=== PATIENT | male | born 1990 | race Two or more races ===

== ENCOUNTER 2023-07-01 19:13 | Inpatient (IN) | payer OTHER ==
[2023-07-01 20:14] VITALS: BMI 18.5
[2023-07-02] MEDS ORDERED: MAGNESIUM HYDROX 2400MG/30ML ORAL SUSPENSION 30 ML CUP PO PRN (01:06)
[2023-07-02] MEDS ORDERED: LOPERAMIDE HCL 2 MG CAPSULE PO PRN (01:06)
[2023-07-02] MEDS ORDERED: NALOXONE HCL (KLOXXADO) 8 MG SPRAY NS PRN (01:06)
[2023-07-02] MEDS ORDERED: ONDANSETRON *ODT* 4 MG TABLET SL PRN (01:06)
[2023-07-02] MEDS ORDERED: guaiFENesin 600 MG TABLET.ER (FP) PO PRN (01:06)
[2023-07-02] MEDS ORDERED: MAG HYDROX/AL HYDROX/SIMETH 30 ML UNIT-DOSE CUP PO PRN (01:06)
[2023-07-02] MEDS ORDERED: BISMUTH SUBSALICYLATE 524 MG/30 ML PO PRN (01:06)
[2023-07-02] MEDS ORDERED: hydrOXYzine PAMOATE 25 MG CAPSULE (FP) PO PRN (01:06)
[2023-07-02] MEDS ORDERED: BENZOCAINE/MENTHOL (CHLORASEPTIC ) LOZENGE MM PRN (01:06)
[2023-07-02] MEDS ORDERED: POLYETHYLENE GLYCOL (HEALTHYLAX) 3350 17 GM PACKET PO PRN (01:06)
[2023-07-02] MEDS ORDERED: NALOXONE HCL 0.4 MG/ML VIAL IM PRN (01:06)
[2023-07-02] MEDS ORDERED: IBUPROFEN 400 MG TABLET (FP) PO PRN (01:06)
[2023-07-02] MEDS ORDERED: DICYCLOMINE HCL 10 MG CAPSULE PO PRN (01:06)
[2023-07-02] MEDS ORDERED: BENZONATATE 200 MG CAPSULE PO PRN (01:06)
[2023-07-02] MEDS ORDERED: chlordiazePOXIDE HCL 25 MG CAPSULE PO PRN (01:09)
[2023-07-02] MEDS: levETIRAcetam 500 MG TABLET (FP) PO ONE ×2 (02:32→02:36)
[2023-07-02] MEDS: ACETAMINOPHEN 325 MG TABLET (FP) PO PRN (02:37)
[2023-07-02] MEDS: METHOCARBAMOL 500 MG TABLET PO PRN (02:37)
[2023-07-02] MEDS: cloNIDine HCL 0.1 MG TABLET PO ONE (02:38)
[2023-07-02] MEDS: chlordiazePOXIDE HCL 25 MG CAPSULE PO SCH (06:00)
[2023-07-02] MEDS: PRENATAL VITAMINS W/ FOLIC ACID TABLET (FP) PO SCH (10:17)
[2023-07-02] MEDS: levETIRAcetam 500 MG TABLET (FP) PO SCH (13:19)
[2023-07-02] MEDS: cloNIDine HCL 0.1 MG TABLET PO PRN (17:34)
[2023-07-02] MEDS: IBUPROFEN 600 MG TABLET (FP) PO PRN (22:04)
[2023-07-02] MEDS: THIAMINE 100 MG TABLET PO SCH (22:55)
[2023-07-02] MEDS: MELATONIN 5 MG TABLETS PO SCH (22:57)
[2023-07-03] MEDS ORDERED: chlordiazePOXIDE HCL 25 MG CAPSULE PO SCH (05:00)
[2023-07-03 11:47] LABS: HEMATOCRIT 32.9 % (35.4-49); HEMOGLOBIN 10.7 GM/dL (11.7-16.9); MCH 27.1 pg (25.7-33.7); MCHC 32.5 g/dl (32.0-35.9); MEAN CELL VOLUME 83.5 fl (80-96); MEAN PLT VOLUME 8.3 fl (7.5-11.1); PLATELET COUNT 159 10^3/uL (134-434); RBC 3.94 M/mm3 (4.00-5.60); RDW 18.4 % (11.9-15.9); WHITE BLOOD COUNT 5.5 K/mm3 (4.0-10.0)
[2023-07-03 11:49] LABS: POTASSIUM 3.7 mmol/L (3.5-5.1)
[2023-07-03 11:51] LABS: CALCIUM 9.3 mg/dL (8.5-10.1)
[2023-07-03 11:52] LABS: ALBUMIN 2.4 g/dl (3.4-5.0)
[2023-07-03 11:55] LABS: CREATININE 0.6 mg/dL (0.55-1.3)
[2023-07-03 11:57] LABS: BILIRUBIN,TOTAL 0.6 mg/dL (0.2-1); TOT PROT 6.4 g/dl (6.4-8.2)
[2023-07-03] MEDS ORDERED: LORazepam 1 MG TABLET PO PRN (13:32)
[2023-07-03] MEDS: LORazepam 2 MG TABLET PO SCH (17:23)
[2023-07-04] MEDS ORDERED: chlordiazePOXIDE HCL 10 MG CAPSULE PO PRN
[2023-07-04] MEDS ORDERED: chlordiazePOXIDE HCL 10 MG CAPSULE PO SCH (05:00)
[2023-07-04] MEDS: LORazepam 1 MG TABLET PO SCH (05:55)
[2023-07-04] MEDS ORDERED: levETIRAcetam 500 MG TABLET (FP) PO SCH ×2 (10:00→22:00)
[2023-07-04] MEDS: amLODIPine BESYLATE 10 MG TABLET (FP) PO SCH (13:33)
[2023-07-04] MEDS: LOSARTAN POTASSIUM 50 MG TABLET PO ONE (19:13)
[2023-07-04] MEDS: HYDROCHLOROTHIAZIDE 12.5 MG CAPSULE (FP) PO ONE (19:13)
[2023-07-04] MEDS: levETIRAcetam 500 MG TABLET (FP) PO SCH (22:29)
[2023-07-04] MEDS: TOLNAFTATE 1% CREAM 15 GM TUBE TP SCH (22:29)
[2023-07-05] MEDS ORDERED: chlordiazePOXIDE HCL 10 MG CAPSULE PO SCH (05:00)
[2023-07-05] MEDS: LORazepam 0.5 MG TABLET PO SCH (05:48)
[2023-07-05 09:03] VITALS: RESP 18
[2023-07-05] MEDS: LOSARTAN 50MG/HCTZ 12.5MG 1 TAB PO SCH (10:46)
[2023-07-05 12:48] VITALS: BP 111/64; PULSE 90; TEMP 97.3
[2023-07-06] MEDS ORDERED: LORazepam 0.5 MG TABLET PO PRN
[2023-07-06] MEDS ORDERED: LORazepam 0.5 MG TABLET PO ONE (05:00)
[2023-07-06] MEDS ORDERED: chlordiazePOXIDE HCL 10 MG CAPSULE PO ONE (05:00)
[2023-07-07] MEDS ORDERED: LORazepam 0.5 MG TABLET PO ONE (05:00)
== END 2023-07-05 15:33 | disposition left against medical advice (07) | DRG 770 ==
LOC: YASAS 19:13 → Y6N 23:53 → Y3N 07-02 01:39
PROVIDERS: ADMIT Allergy & Immunology; ATTEND Surgery
PROC: HZ2ZZZZ Detoxification Services for Substance Abuse Treatment (ICD-10-PCS; principal; 2023-07-01)
DX: F10.230 Alcohol dependence with withdrawal, uncomplicated (principal); R56.1 Post traumatic seizures; I10 Essential (primary) hypertension; B35.3 Tinea pedis; Z87.891 Personal history of nicotine dependence; Z99.89 Dependence on other enabling machines and devices; R55 Syncope and collapse; S09.90XA Unspecified injury of head, initial encounter; W19.XXXA Unspecified fall, initial encounter; Y92.230 Patient room in hospital as the place of occurrence of the external cause
CPT/HCPCS: 36415; 80053; 80177; 80307; 82962; 83036; 85027; 86780; 93005; 93010

== ENCOUNTER 2023-07-02 22:37 | Emergency (ER) | payer OTHER ==
[2023-07-02 22:49] VITALS: BP 134/86; PULSE 85; RESP 16; TEMP 97.8; BMI 20.6
[2023-07-03] MEDS: chlordiazePOXIDE HCL 25 MG CAPSULE PO ONE (01:26)
== END 2023-07-03 01:32 | disposition home or self-care (01) ==
LOC: JER 22:37
DX: R55 Syncope and collapse (principal); R53.1 Weakness; W19.XXXA Unspecified fall, initial encounter
CPT/HCPCS: 70450-TC; 93005; 93010; 99284-25

== ENCOUNTER 2023-07-27 11:46 | Inpatient (IN) | payer OTHER ==
[2023-07-27 12:40] VITALS: BMI 17.9
[2023-07-27] MEDS ORDERED: levETIRAcetam 500 MG TABLET (FP) PO SCH (13:00)
[2023-07-27] MEDS ORDERED: BENZONATATE 200 MG CAPSULE PO PRN (13:01)
[2023-07-27] MEDS ORDERED: POLYETHYLENE GLYCOL (HEALTHYLAX) 3350 17 GM PACKET PO PRN (13:01)
[2023-07-27] MEDS ORDERED: DICYCLOMINE HCL 10 MG CAPSULE PO PRN (13:01)
[2023-07-27] MEDS ORDERED: LOPERAMIDE HCL 2 MG CAPSULE PO PRN (13:01)
[2023-07-27] MEDS ORDERED: BENZOCAINE/MENTHOL (CHLORASEPTIC ) LOZENGE MM PRN (13:01)
[2023-07-27] MEDS ORDERED: MAG HYDROX/AL HYDROX/SIMETH 30 ML UNIT-DOSE CUP PO PRN (13:01)
[2023-07-27] MEDS ORDERED: ONDANSETRON *ODT* 4 MG TABLET SL PRN (13:01)
[2023-07-27] MEDS ORDERED: MAGNESIUM HYDROX 2400MG/30ML ORAL SUSPENSION 30 ML CUP PO PRN (13:01)
[2023-07-27] MEDS ORDERED: guaiFENesin 600 MG TABLET.ER (FP) PO PRN (13:01)
[2023-07-27] MEDS ORDERED: BISMUTH SUBSALICYLATE 524 MG/30 ML PO PRN (13:01)
[2023-07-27] MEDS ORDERED: levETIRAcetam 500 MG TABLET (FP) PO ONE ×2 (14:12→14:15)
[2023-07-27] MEDS ORDERED: chlordiazePOXIDE HCL 25 MG CAPSULE ONE (14:12)
[2023-07-27] MEDS: levETIRAcetam 500 MG TABLET (FP) PO SCH (14:14)
[2023-07-27] MEDS: chlordiazePOXIDE HCL 25 MG CAPSULE PO ONE (14:15)
[2023-07-27] MEDS ORDERED: ACETAMINOPHEN 325 MG TABLET (FP) ONE (14:16)
[2023-07-27] MEDS: ACETAMINOPHEN 325 MG TABLET (FP) PO PRN (14:16)
[2023-07-27] MEDS: BACITRACIN 0.9 GM PACKET TP SCH (14:41)
[2023-07-27] MEDS: LOSARTAN 50MG/HCTZ 12.5MG 1 TAB PO SCH (15:29)
[2023-07-27] MEDS: chlordiazePOXIDE HCL 25 MG CAPSULE PO SCH (17:55)
[2023-07-27] MEDS: THIAMINE 100 MG TABLET PO SCH (22:13)
[2023-07-27] MEDS: MELATONIN 5 MG TABLETS PO SCH (22:13)
[2023-07-28] MEDS: amLODIPine BESYLATE 10 MG TABLET (FP) PO SCH (10:38)
[2023-07-28] MEDS: PRENATAL VITAMINS W/ FOLIC ACID TABLET (FP) PO SCH (10:38)
[2023-07-28] MEDS: NICOTINE POLACRILEX 2 MG GUM BUC PRN (14:42)
[2023-07-28] MEDS: IBUPROFEN 400 MG TABLET (FP) PO PRN (17:58)
[2023-07-29] MEDS: chlordiazePOXIDE HCL 25 MG CAPSULE PO SCH (05:03)
[2023-07-29] MEDS: chlordiazePOXIDE HCL 25 MG CAPSULE PO PRN (18:25)
[2023-07-29] MEDS: METHOCARBAMOL 500 MG TABLET PO PRN (22:39)
[2023-07-30] MEDS ORDERED: chlordiazePOXIDE HCL 10 MG CAPSULE PO PRN
[2023-07-30] MEDS: chlordiazePOXIDE HCL 10 MG CAPSULE PO SCH (05:55)
[2023-07-30 12:41] VITALS: BP 116/71; PULSE 99; RESP 18; TEMP 97.7
[2023-07-31] MEDS ORDERED: chlordiazePOXIDE HCL 10 MG CAPSULE PO SCH (05:00)
[2023-08-01] MEDS ORDERED: chlordiazePOXIDE HCL 10 MG CAPSULE PO ONE (05:00)
== END 2023-07-30 16:30 | disposition home or self-care (01) | DRG 775 ==
LOC: YASAS 11:46 → Y6N 13:12
PROVIDERS: ADMIT Allergy & Immunology; ATTEND Surgery
PROC: HZ2ZZZZ Detoxification Services for Substance Abuse Treatment (ICD-10-PCS; principal; 2023-07-27)
DX: F10.230 Alcohol dependence with withdrawal, uncomplicated (principal); F17.210 Nicotine dependence, cigarettes, uncomplicated; G40.909 Epilepsy, unspecified, not intractable, without status epilepticus; I10 Essential (primary) hypertension; B35.3 Tinea pedis; R26.89 Other abnormalities of gait and mobility; Z99.89 Dependence on other enabling machines and devices; Z59.00 Homelessness unspecified
CPT/HCPCS: 80305; 80307

== ENCOUNTER 2023-09-01 12:01 | Inpatient (IN) | payer OTHER ==
[2023-09-01] MEDS ORDERED: BENZONATATE 200 MG CAPSULE PO PRN (13:18)
[2023-09-01] MEDS ORDERED: METHOCARBAMOL 500 MG TABLET PO PRN (13:18)
[2023-09-01] MEDS ORDERED: P-EPHED 60MG/TRIPROLIDI 2.5MG TABLET PO PRN (13:18)
[2023-09-01] MEDS ORDERED: LOPERAMIDE HCL 2 MG CAPSULE PO PRN (13:18)
[2023-09-01] MEDS ORDERED: MAG HYDROX/AL HYDROX/SIMETH 30 ML UNIT-DOSE CUP PO PRN (13:18)
[2023-09-01] MEDS ORDERED: BENZOCAINE/MENTHOL (CHLORASEPTIC ) LOZENGE MM PRN (13:18)
[2023-09-01] MEDS ORDERED: guaiFENesin 600 MG TABLET.ER (FP) PO PRN (13:18)
[2023-09-01] MEDS ORDERED: DICYCLOMINE HCL 10 MG CAPSULE PO PRN (13:18)
[2023-09-01] MEDS ORDERED: POLYETHYLENE GLYCOL (HEALTHYLAX) 3350 17 GM PACKET PO PRN (13:18)
[2023-09-01] MEDS ORDERED: hydrOXYzine PAMOATE 25 MG CAPSULE (FP) PO PRN (13:18)
[2023-09-01] MEDS ORDERED: MAGNESIUM HYDROX 2400MG/30ML ORAL SUSPENSION 30 ML CUP PO PRN (13:18)
[2023-09-01] MEDS ORDERED: ONDANSETRON *ODT* 4 MG TABLET SL PRN (13:18)
[2023-09-01] MEDS ORDERED: BISMUTH SUBSALICYLATE 262 MG/15 ML BTL PO PRN (13:18)
[2023-09-01] MEDS ORDERED: IBUPROFEN 400 MG TABLET (FP) PO PRN (13:18)
[2023-09-01] MEDS ORDERED: levETIRAcetam 500 MG TABLET (FP) PO ONE (14:32)
[2023-09-01] MEDS: levETIRAcetam 500 MG TABLET (FP) PO SCH (14:35)
[2023-09-01] MEDS ORDERED: chlordiazePOXIDE HCL 25 MG CAPSULE ONE (15:11)
[2023-09-01] MEDS: chlordiazePOXIDE HCL 25 MG CAPSULE PO PRN (15:12)
[2023-09-01] MEDS: LOSARTAN 50MG/HCTZ 12.5MG 1 TAB PO ONE (16:21)
[2023-09-01] MEDS: LOSARTAN 50MG/HCTZ 12.5MG 1 TAB PO SCH (16:45)
[2023-09-01] MEDS: chlordiazePOXIDE HCL 25 MG CAPSULE PO SCH (17:19)
[2023-09-01] MEDS: ACETAMINOPHEN 325 MG TABLET (FP) PO PRN (18:31)
[2023-09-01] MEDS: THIAMINE 100 MG TABLET PO SCH (21:35)
[2023-09-01] MEDS: amLODIPine BESYLATE 10 MG TABLET (FP) PO SCH (21:35)
[2023-09-01] MEDS: NICOTINE POLACRILEX 2 MG GUM BUC PRN (21:35)
[2023-09-01] MEDS: TOLNAFTATE 1% CREAM 15 GM TUBE TP SCH (21:35)
[2023-09-01] MEDS: MELATONIN 5 MG TABLETS PO SCH (22:00)
[2023-09-02] MEDS: METOPROLOL TARTRATE 25 MG TABLET (FP) PO ONE
[2023-09-02] MEDS: PRENATAL VITAMINS W/ FOLIC ACID TABLET (FP) PO SCH (09:57)
[2023-09-03] MEDS: chlordiazePOXIDE HCL 25 MG CAPSULE PO SCH (05:22)
[2023-09-03] MEDS: IBUPROFEN 600 MG TABLET (FP) PO PRN (07:32)
[2023-09-03 08:51] VITALS: BP 118/64; PULSE 68; RESP 18; TEMP 98.1
[2023-09-04] MEDS ORDERED: chlordiazePOXIDE HCL 10 MG CAPSULE PO PRN
[2023-09-04] MEDS ORDERED: chlordiazePOXIDE HCL 10 MG CAPSULE PO SCH (05:00)
[2023-09-05] MEDS ORDERED: chlordiazePOXIDE HCL 10 MG CAPSULE PO SCH (05:00)
[2023-09-06] MEDS ORDERED: chlordiazePOXIDE HCL 10 MG CAPSULE PO ONE (05:00)
== END 2023-09-03 09:03 | disposition left against medical advice (07) | DRG 770 ==
LOC: YASAS 12:01 → Y6N 14:54
PROVIDERS: ADMIT Allergy & Immunology; ATTEND Surgery
PROC: HZ2ZZZZ Detoxification Services for Substance Abuse Treatment (ICD-10-PCS; principal; 2023-09-01)
DX: F10.230 Alcohol dependence with withdrawal, uncomplicated (principal); G40.909 Epilepsy, unspecified, not intractable, without status epilepticus; I10 Essential (primary) hypertension; Z87.891 Personal history of nicotine dependence; Z99.89 Dependence on other enabling machines and devices
CPT/HCPCS: 80305; 80307

== ENCOUNTER 2024-01-08 23:26 | Inpatient (IN) | payer OTHER ==
[2024-01-09 00:29] VITALS: BMI 21.5
[2024-01-09] MEDS ORDERED: BENZONATATE 200 MG CAPSULE PO PRN (02:11)
[2024-01-09] MEDS ORDERED: guaiFENesin 600 MG TABLET.ER (FP) PO PRN (02:11)
[2024-01-09] MEDS ORDERED: DICYCLOMINE HCL 10 MG CAPSULE PO PRN (02:11)
[2024-01-09] MEDS ORDERED: POLYETHYLENE GLYCOL (HEALTHYLAX) 3350 17 GM PACKET PO PRN (02:11)
[2024-01-09] MEDS ORDERED: BENZOCAINE/MENTHOL (CHLORASEPTIC ) LOZENGE MM PRN (02:11)
[2024-01-09] MEDS ORDERED: BISMUTH SUBSALICYLATE 524 MG/30 ML PO PRN (02:11)
[2024-01-09] MEDS ORDERED: ONDANSETRON *ODT* 4 MG TABLET SL PRN (02:11)
[2024-01-09] MEDS ORDERED: MAGNESIUM HYDROX 2400MG/30ML ORAL SUSPENSION 30 ML CUP PO PRN (02:11)
[2024-01-09] MEDS ORDERED: NALOXONE (NARCAN) HCL 4 MG/0.1 ML SPRAY NS PRN (02:11)
[2024-01-09] MEDS ORDERED: LOPERAMIDE HCL 2 MG CAPSULE PO PRN (02:11)
[2024-01-09] MEDS ORDERED: ACETAMINOPHEN 325 MG TABLET (FP) PO PRN (02:11)
[2024-01-09] MEDS ORDERED: MAG HYDROX/AL HYDROX/SIMETH 30 ML UNIT-DOSE CUP PO PRN (02:11)
[2024-01-09] MEDS ORDERED: NALOXONE (NYS OPIOID OVERDOSE PROGRAM) 4 MG/0.1 ML SPRAY NS PRN (02:11)
[2024-01-09] MEDS ORDERED: hydrOXYzine PAMOATE 25 MG CAPSULE (FP) PO PRN (02:11)
[2024-01-09] MEDS ORDERED: IBUPROFEN 400 MG TABLET (FP) PO PRN (02:11)
[2024-01-09] MEDS ORDERED: chlordiazePOXIDE HCL 25 MG CAPSULE PO PRN (02:15)
[2024-01-09] MEDS: cloNIDine HCL 0.1 MG TABLET PO ONE (02:43)
[2024-01-09] MEDS: chlordiazePOXIDE HCL 25 MG CAPSULE PO SCH (05:14)
[2024-01-09] MEDS: PERMETHRIN (NIX CREAM SCALP RINSE) 59 ML 1% BOTTLE TP ONE (08:58)
[2024-01-09] MEDS: amLODIPine BESYLATE 10 MG TABLET (FP) PO SCH (09:34)
[2024-01-09] MEDS: PRENATAL VITAMINS W/ FOLIC ACID TABLET (FP) PO SCH (09:34)
[2024-01-09] MEDS: levETIRAcetam 500 MG TABLET (FP) PO SCH ×2 (09:34→22:40)
[2024-01-09] MEDS: NICOTINE 21 MG/24 HOURS TOPICAL PATCH TD SCH (09:35)
[2024-01-09] MEDS: PERMETHRIN 5% TOPICAL CREAM 60 GM TUBE TP ONE (10:53)
[2024-01-09] MEDS ORDERED: levETIRAcetam 500 MG TABLET (FP) PO SCH (14:00)
[2024-01-09] MEDS: IBUPROFEN 600 MG TABLET (FP) PO PRN (17:33)
[2024-01-09] MEDS: METHOCARBAMOL 500 MG TABLET PO PRN (17:33)
[2024-01-09] MEDS: propRANOLol HCL 10 MG TABLET PO ONE (21:11)
[2024-01-09] MEDS: THIAMINE 100 MG TABLET PO SCH (22:38)
[2024-01-09] MEDS: MELATONIN 5 MG TABLETS PO SCH (22:38)
[2024-01-09] MEDS: NICOTINE POLACRILEX 2 MG GUM BUC PRN (23:38)
[2024-01-10] MEDS: chlordiazePOXIDE HCL 25 MG CAPSULE PO SCH (05:55)
[2024-01-10] MEDS: METOPROLOL TARTRATE 50 MG TABLET (FP) PO SCH (12:58)
[2024-01-10 13:24] LABS: HEMATOCRIT 38.6 % (35.4-49); HEMOGLOBIN 12.7 GM/dL (11.7-16.9); MCH 29.1 pg (25.7-33.7); MCHC 32.9 g/dl (32.0-35.9); MEAN CELL VOLUME 88.4 fl (80-96); MEAN PLT VOLUME 8.1 fl (7.5-11.1); PLATELET COUNT 188 10^3/uL (134-434); RBC 4.36 M/mm3 (4.00-5.60); RDW 16.5 % (11.9-15.9); WHITE BLOOD COUNT 7.8 K/mm3 (4.0-10.0)
[2024-01-10 13:40] LABS: POTASSIUM 3.3 mmol/L (3.5-5.1)
[2024-01-10 13:49] LABS: BLOOD UREA NITROGEN 7.4 mg/dL (7-18); CALCIUM 9.4 mg/dL (8.5-10.1)
[2024-01-10 13:52] LABS: CREATININE 0.6 mg/dL (0.55-1.3)
[2024-01-10 13:54] LABS: BILIRUBIN,TOTAL 0.4 mg/dL (0.2-1)
[2024-01-10 13:56] LABS: TOT PROT 6.1 g/dl (6.4-8.2)
[2024-01-10 21:53] VITALS: BP 123/87; PULSE 97; RESP 18; TEMP 98
[2024-01-11] MEDS ORDERED: chlordiazePOXIDE HCL 10 MG CAPSULE PO PRN
[2024-01-11] MEDS: chlordiazePOXIDE HCL 10 MG CAPSULE PO SCH (05:30)
[2024-01-11] MEDS: POTASSIUM CHLORIDE ORAL LIQUID 20 MEQ/15 ML PO ONE (13:44)
[2024-01-11] MEDS: LACTULOSE 20 GM/30 ML UDC (FOR ORAL USE ONLY) PO SCH (13:44)
[2024-01-11] MEDS ORDERED: chlordiazePOXIDE 5 MG CAPSULE PO SCH (17:00)
[2024-01-11] MEDS ORDERED: POTASSIUM CHLORIDE ORAL LIQUID 20 MEQ/15 ML PO ONE (17:30)
[2024-01-12] MEDS ORDERED: chlordiazePOXIDE 5 MG CAPSULE PO SCH (05:00)
[2024-01-12] MEDS ORDERED: chlordiazePOXIDE HCL 10 MG CAPSULE PO SCH (05:00)
[2024-01-13] MEDS ORDERED: chlordiazePOXIDE 5 MG CAPSULE PO ONE (05:00)
[2024-01-13] MEDS ORDERED: chlordiazePOXIDE HCL 10 MG CAPSULE PO ONE (05:00)
== END 2024-01-11 14:33 | disposition home or self-care (01) | DRG 775 ==
LOC: YASAS 23:26 → Y6N 01-09 02:17
PROVIDERS: ADMIT Allergy & Immunology; ATTEND Surgery
PROC: HZ2ZZZZ Detoxification Services for Substance Abuse Treatment (ICD-10-PCS; principal; 2024-01-09)
DX: F10.230 Alcohol dependence with withdrawal, uncomplicated (principal); F17.210 Nicotine dependence, cigarettes, uncomplicated; E72.20 Disorder of urea cycle metabolism, unspecified; E87.6 Hypokalemia; G40.909 Epilepsy, unspecified, not intractable, without status epilepticus; I10 Essential (primary) hypertension; B86 Scabies; R73.9 Hyperglycemia, unspecified; R74.01 Elevation of levels of liver transaminase levels; Z87.820 Personal history of traumatic brain injury; Z99.89 Dependence on other enabling machines and devices
CPT/HCPCS: 36415; 80053; 80305; 80307; 82140; 85027; 86780; 93005; 93010

== ENCOUNTER 2024-03-28 04:26 | Inpatient (IN) | payer OTHER ==
[2024-03-28 04:46] VITALS: BMI 21.2
[2024-03-28] MEDS ORDERED: NALOXONE (NARCAN) HCL 4 MG/0.1 ML SPRAY NS PRN (06:09)
[2024-03-28] MEDS ORDERED: MAGNESIUM HYDROX 2400MG/30ML ORAL SUSPENSION 30 ML CUP PO PRN (06:09)
[2024-03-28] MEDS ORDERED: LOPERAMIDE HCL 2 MG CAPSULE PO PRN (06:09)
[2024-03-28] MEDS ORDERED: DICYCLOMINE HCL 10 MG CAPSULE PO PRN (06:09)
[2024-03-28] MEDS ORDERED: IBUPROFEN 400 MG TABLET (FP) PO PRN (06:09)
[2024-03-28] MEDS ORDERED: BENZONATATE 200 MG CAPSULE PO PRN (06:09)
[2024-03-28] MEDS ORDERED: BENZOCAINE/MENTHOL (CHLORASEPTIC ) LOZENGE MM PRN (06:09)
[2024-03-28] MEDS ORDERED: guaiFENesin 600 MG TABLET.ER (FP) PO PRN (06:09)
[2024-03-28] MEDS ORDERED: IBUPROFEN 600 MG TABLET (FP) PO PRN (06:09)
[2024-03-28] MEDS ORDERED: MAG HYDROX/AL HYDROX/SIMETH 30 ML UNIT-DOSE CUP PO PRN (06:09)
[2024-03-28] MEDS ORDERED: ONDANSETRON *ODT* 4 MG TABLET SL PRN (06:09)
[2024-03-28] MEDS ORDERED: POLYETHYLENE GLYCOL (HEALTHYLAX) 3350 17 GM PACKET PO PRN (06:09)
[2024-03-28] MEDS ORDERED: diazePAM 5 MG TABLET ONE (06:48)
[2024-03-28] MEDS: POTASSIUM CHLORIDE ORAL LIQUID 20 MEQ/15 ML PO ONE (06:54)
[2024-03-28] MEDS: diazePAM 5 MG TABLET PO PRN (06:55)
[2024-03-28] MEDS: ACETAMINOPHEN 325 MG TABLET (FP) PO PRN (06:55)
[2024-03-28] MEDS: cloNIDine HCL 0.1 MG TABLET PO ONE ×2 (06:55→13:53)
[2024-03-28] MEDS: levETIRAcetam 500 MG TABLET (FP) PO ONE (08:45)
[2024-03-28] MEDS: NICOTINE 14 MG/24 HOURS TOPICAL PATCH TD SCH (09:32)
[2024-03-28] MEDS: amLODIPine BESYLATE 10 MG TABLET (FP) PO SCH (09:33)
[2024-03-28] MEDS: LACTULOSE 20 GM/30 ML UDC (FOR ORAL USE ONLY) PO SCH (09:33)
[2024-03-28] MEDS: PRENATAL VITAMINS W/ FOLIC ACID TABLET (FP) PO SCH (09:33)
[2024-03-28] MEDS: POTASSIUM CHLORIDE TABS 20 MEQ TABLET.ER (FP) PO SCH (09:33)
[2024-03-28] MEDS: NICOTINE POLACRILEX 2 MG GUM BUC PRN (09:37)
[2024-03-28] MEDS: diazePAM 5 MG TABLET PO SCH (11:03)
[2024-03-28] MEDS: BISMUTH SUBSALICYLATE 524 MG/30 ML PO PRN (11:05)
[2024-03-28] MEDS: METOPROLOL TARTRATE 50 MG TABLET (FP) PO ONE (17:06)
[2024-03-28] MEDS: THIAMINE 100 MG TABLET PO SCH (22:54)
[2024-03-28] MEDS: METHOCARBAMOL 500 MG TABLET PO PRN (22:54)
[2024-03-28] MEDS: MELATONIN 5 MG TABLETS PO SCH (22:54)
[2024-03-29] MEDS: levETIRAcetam 500 MG TABLET (FP) PO SCH (10:23)
[2024-03-30] MEDS: diazePAM 5 MG TABLET PO SCH (06:34)
[2024-03-30 09:24] LABS: POTASSIUM 3.9 mmol/L (3.5-5.1)
[2024-03-30 09:27] LABS: HEMOGLOBIN 11.1 GM/dL (11.7-16.9); MCH 27.4 pg (25.7-33.7); MCHC 31.8 g/dl (32.0-35.9); MEAN CELL VOLUME 86.2 fl (80-96); PLATELET COUNT 309 10^3/uL (134-434); RBC 4.06 M/mm3 (4.00-5.60); RDW 17.6 % (11.9-15.9); WHITE BLOOD COUNT 10.1 K/mm3 (4.0-10.0)
[2024-03-30 10:02] LABS: ALBUMIN 2.1 g/dl (3.4-5.0); BLOOD UREA NITROGEN 7.1 mg/dL (7-18)
[2024-03-30 10:06] LABS: CREATININE 0.8 mg/dL (0.55-1.3)
[2024-03-30 10:07] LABS: BILIRUBIN,TOTAL 0.6 mg/dL (0.2-1); TOT PROT 6.4 g/dl (6.4-8.2)
[2024-03-30 10:08] LABS: CALCIUM 9.2 mg/dL (8.5-10.1)
[2024-03-30] MEDS: hydrOXYzine PAMOATE 25 MG CAPSULE (FP) PO PRN (18:34)
[2024-03-30] MEDS: cloNIDine HCL 0.1 MG TABLET PO ONE (19:51)
[2024-03-31] MEDS: diazePAM 5 MG TABLET PO SCH (06:07)
[2024-03-31] MEDS ORDERED: LORazepam 2 MG/ML SDV VIAL ONE (09:48)
[2024-03-31] MEDS ORDERED: levETIRAcetam 500 MG TABLET (FP) PO ONE (09:57)
[2024-03-31] MEDS: LORazepam 2 MG/ML SDV VIAL IM ONE (11:33)
[2024-03-31] MEDS: levETIRAcetam 500 MG TABLET (FP) PO ONE (11:38)
[2024-03-31 22:53] VITALS: PULSE 93
[2024-03-31 23:09] VITALS: BP 127/82; RESP 18; TEMP 97.7
[2024-04-01] MEDS: diazePAM 5 MG TABLET PO ONE (06:12)
[2024-04-01] MEDS: levETIRAcetam 500 MG TABLET (FP) PO ONE (10:04)
[2024-04-01] MEDS: NALOXONE (NYS OPIOID OVERDOSE PROGRAM) 4 MG/0.1 ML SPRAY NS SCH (10:13)
== END 2024-04-01 11:23 | disposition home or self-care (01) | DRG 775 ==
LOC: YASAS 04:26 → Y3N 07:46
PROVIDERS: ADMIT Allergy & Immunology; ATTEND Allergy & Immunology
PROC: HZ2ZZZZ Detoxification Services for Substance Abuse Treatment (ICD-10-PCS; principal; 2024-03-28)
DX: F10.230 Alcohol dependence with withdrawal, uncomplicated (principal); F17.210 Nicotine dependence, cigarettes, uncomplicated; E72.20 Disorder of urea cycle metabolism, unspecified; R56.1 Post traumatic seizures; E87.6 Hypokalemia; I10 Essential (primary) hypertension
CPT/HCPCS: 36415; 71045-TC-FY; 80053; 80177; 80305; 80307; 82140; 82962; 84132; 85025; 85027; 93005; 93010; 99283-25

== ENCOUNTER 2024-05-14 10:40 | Inpatient (IN) | payer OTHER ==
[2024-05-14 11:01] VITALS: BMI 20.6
[2024-05-14] MEDS ORDERED: chlordiazePOXIDE HCL 25 MG CAPSULE PO PRN (11:05)
[2024-05-14] MEDS ORDERED: LOPERAMIDE HCL 2 MG CAPSULE PO PRN (11:11)
[2024-05-14] MEDS ORDERED: ONDANSETRON *ODT* 4 MG TABLET SL PRN (11:11)
[2024-05-14] MEDS ORDERED: POLYETHYLENE GLYCOL (HEALTHYLAX) 3350 17 GM PACKET PO PRN (11:11)
[2024-05-14] MEDS ORDERED: BENZONATATE 200 MG CAPSULE PO PRN (11:11)
[2024-05-14] MEDS ORDERED: BISMUTH SUBSALICYLATE 524 MG/30 ML PO PRN (11:11)
[2024-05-14] MEDS ORDERED: NALOXONE (NARCAN) HCL 4 MG/0.1 ML SPRAY NS PRN (11:11)
[2024-05-14] MEDS ORDERED: MAG HYDROX/AL HYDROX/SIMETH 30 ML UNIT-DOSE CUP PO PRN (11:11)
[2024-05-14] MEDS ORDERED: NICOTINE POLACRILEX 2 MG LOZENGE BC PRN (11:11)
[2024-05-14] MEDS ORDERED: IBUPROFEN 400 MG TABLET (FP) PO PRN (11:11)
[2024-05-14] MEDS ORDERED: BENZOCAINE/MENTHOL (CHLORASEPTIC ) LOZENGE MM PRN (11:11)
[2024-05-14] MEDS ORDERED: guaiFENesin 600 MG TABLET.ER (FP) PO PRN (11:11)
[2024-05-14] MEDS ORDERED: DICYCLOMINE HCL 10 MG CAPSULE PO PRN (11:11)
[2024-05-14] MEDS ORDERED: ACETAMINOPHEN 325 MG TABLET (FP) PO PRN (11:11)
[2024-05-14] MEDS: levETIRAcetam 500 MG TABLET (FP) PO SCH ×2 (11:57→12:10)
[2024-05-14] MEDS: amLODIPine BESYLATE 10 MG TABLET (FP) PO SCH (11:57)
[2024-05-14] MEDS ORDERED: levETIRAcetam 500 MG TABLET (FP) PO ONE ×2 (12:02→12:07)
[2024-05-14] MEDS ORDERED: chlordiazePOXIDE HCL 25 MG CAPSULE ONE (12:07)
[2024-05-14] MEDS: chlordiazePOXIDE HCL 25 MG CAPSULE PO SCH (12:09)
[2024-05-14] MEDS: THIAMINE 100 MG TABLET PO SCH (22:04)
[2024-05-14] MEDS: MELATONIN 5 MG TABLETS PO SCH (22:19)
[2024-05-15] MEDS: PRENATAL VITAMINS W/ FOLIC ACID TABLET (FP) PO SCH (10:19)
[2024-05-15] MEDS: HYDROCHLOROTHIAZIDE 25 MG TABLET (FP) PO SCH (10:19)
[2024-05-15] MEDS: METHOCARBAMOL 500 MG TABLET PO PRN (10:19)
[2024-05-15] MEDS: amLODIPine BESYLATE 5 MG TABLET (FP) PO SCH (10:19)
[2024-05-15] MEDS: MAGNESIUM OXIDE 400 MG TABLET (FP) PO SCH (10:55)
[2024-05-15 11:52] LABS: POTASSIUM 3.4 mmol/L (3.5-5.1)
[2024-05-15 11:53] LABS: CALCIUM 8.9 mg/dL (8.5-10.1)
[2024-05-15 11:54] LABS: ALBUMIN 2.2 g/dl (3.4-5.0); BLOOD UREA NITROGEN 4.9 mg/dL (7-18)
[2024-05-15 11:57] LABS: CREATININE 0.6 mg/dL (0.55-1.3)
[2024-05-15 11:59] LABS: BILIRUBIN,TOTAL 0.2 mg/dL (0.2-1); TOT PROT 6.5 g/dl (6.4-8.2)
[2024-05-15 17:18] LABS: HEMATOCRIT 33.1 % (35.4-49); MCHC 30.3 g/dl (32.0-35.9); MEAN CELL VOLUME 82.4 fl (80-96); MEAN PLT VOLUME 7.8 fl (7.5-11.1); PLATELET COUNT 300 10^3/uL (134-434); RBC 4.01 M/mm3 (4.00-5.60); RDW 19.3 % (11.9-15.9); WHITE BLOOD COUNT 6.4 K/mm3 (4.0-10.0)
[2024-05-16] MEDS: IBUPROFEN 600 MG TABLET (FP) PO PRN (01:55)
[2024-05-16] MEDS: chlordiazePOXIDE HCL 25 MG CAPSULE PO SCH (06:00)
[2024-05-16] MEDS: POTASSIUM CHLORIDE TABS 20 MEQ TABLET.ER (FP) PO ONE (14:50)
[2024-05-16] MEDS: POTASSIUM CHLORIDE ORAL LIQUID 20 MEQ/15 ML PO ONE ×2 (16:00→20:31)
[2024-05-16] MEDS: NICOTINE POLACRILEX 2 MG GUM BUC PRN (22:52)
[2024-05-17] MEDS ORDERED: chlordiazePOXIDE HCL 10 MG CAPSULE PO PRN
[2024-05-17] MEDS: MAGNESIUM HYDROX 2400MG/30ML ORAL SUSPENSION 30 ML CUP PO PRN (02:38)
[2024-05-17] MEDS: chlordiazePOXIDE HCL 10 MG CAPSULE PO SCH (06:00)
[2024-05-17] MEDS ORDERED: POTASSIUM CHLORIDE TABS 20 MEQ TABLET.ER (FP) PO ONE (12:00)
[2024-05-17] MEDS: POTASSIUM CHLORIDE ORAL LIQUID 20 MEQ/15 ML PO SCH (12:21)
[2024-05-18] MEDS: chlordiazePOXIDE HCL 10 MG CAPSULE PO SCH (05:00)
[2024-05-18] MEDS: LACTOBACILLUS ACIDOPHILUS 1 TABLET PO SCH (12:39)
[2024-05-18 17:29] VITALS: RESP 17
[2024-05-19] MEDS: chlordiazePOXIDE HCL 10 MG CAPSULE PO ONE (06:00)
[2024-05-19 06:32] VITALS: BP 121/89; PULSE 76; TEMP 98.2
== END 2024-05-19 10:00 | disposition home or self-care (01) | DRG 775 ==
LOC: YASAS 10:40 → Y6N 11:42
PROVIDERS: ADMIT Allergy & Immunology; ATTEND Allergy & Immunology
PROC: HZ2ZZZZ Detoxification Services for Substance Abuse Treatment (ICD-10-PCS; principal; 2024-05-14)
DX: F10.230 Alcohol dependence with withdrawal, uncomplicated (principal); F17.210 Nicotine dependence, cigarettes, uncomplicated; E87.6 Hypokalemia; I10 Essential (primary) hypertension; G40.909 Epilepsy, unspecified, not intractable, without status epilepticus; R19.7 Diarrhea, unspecified; Z87.820 Personal history of traumatic brain injury; S82.891D Other fracture of right lower leg, subsequent encounter for closed fracture with routine healing; X58.XXXD Exposure to other specified factors, subsequent encounter
CPT/HCPCS: 36415; 80053; 80305; 80307; 85027; 86780

== ENCOUNTER 2024-06-21 18:34 | Inpatient (IN) | payer OTHER ==
[2024-06-21 19:06] VITALS: BMI 21.1
[2024-06-21] MEDS ORDERED: POLYETHYLENE GLYCOL (HEALTHYLAX) 3350 17 GM PACKET PO PRN (21:19)
[2024-06-21] MEDS ORDERED: NALOXONE (NARCAN) HCL 4 MG/0.1 ML SPRAY NS PRN (21:19)
[2024-06-21] MEDS ORDERED: MAG HYDROX/AL HYDROX/SIMETH 30 ML UNIT-DOSE CUP PO PRN (21:19)
[2024-06-21] MEDS ORDERED: IBUPROFEN 400 MG TABLET (FP) PO PRN (21:19)
[2024-06-21] MEDS ORDERED: ONDANSETRON *ODT* 4 MG TABLET SL PRN (21:19)
[2024-06-21] MEDS ORDERED: DICYCLOMINE HCL 10 MG CAPSULE PO PRN (21:19)
[2024-06-21] MEDS ORDERED: BISMUTH SUBSALICYLATE 524 MG/30 ML PO PRN (21:19)
[2024-06-21] MEDS ORDERED: BENZONATATE 200 MG CAPSULE PO PRN (21:19)
[2024-06-21] MEDS ORDERED: BENZOCAINE/MENTHOL (CHLORASEPTIC ) LOZENGE MM PRN (21:19)
[2024-06-21] MEDS ORDERED: MAGNESIUM HYDROX 2400MG/30ML ORAL SUSPENSION 30 ML CUP PO PRN (21:19)
[2024-06-21] MEDS ORDERED: guaiFENesin 600 MG TABLET.ER (FP) PO PRN (21:19)
[2024-06-21] MEDS: MELATONIN 5 MG TABLETS PO SCH (22:16)
[2024-06-21] MEDS: THIAMINE 100 MG TABLET PO SCH (22:17)
[2024-06-21] MEDS ORDERED: cloNIDine HCL 0.1 MG TABLET ONE (23:39)
[2024-06-21] MEDS: cloNIDine HCL 0.1 MG TABLET PO ONE (23:46)
[2024-06-22 10:45] LABS: HEMATOCRIT 32.7 % (40.1-51.0); HEMOGLOBIN 9.9 g/dL (13.7-17.5); MCHC 30.3 g/dl (32.3-36.5); MEAN CELL VOLUME 80.5 fl (79.0-92.2); PLATELET COUNT 156 x10^3/uL (163-337)
[2024-06-22 10:46] LABS: CHLORIDE 102 mmol/L (98-107); POTASSIUM 3.4 mmol/L (3.5-5.1); SODIUM 137 mmol/L (136-145)
[2024-06-22] MEDS: PRENATAL VITAMINS W/ FOLIC ACID TABLET (FP) PO SCH (10:51)
[2024-06-22] MEDS: NICOTINE POLACRILEX 2 MG LOZENGE BC PRN (10:52)
[2024-06-22 10:55] LABS: CALCIUM 9.2 mg/dL (8.5-10.1)
[2024-06-22 10:56] LABS: ANION GAP 8 mmol/L (4-13); CO2 28 mmol/L (21-32); GLUCOSE,RANDOM 87 mg/dL (74-106)
[2024-06-22] MEDS: NICOTINE 14 MG/24 HOURS TOPICAL PATCH TD SCH (10:56)
[2024-06-22 10:59] LABS: CREATININE 0.4 mg/dL (0.55-1.3); SGOT/AST 28 U/L (15-37); SGPT/ALT 18 U/L (13-61)
[2024-06-22 11:00] LABS: BILIRUBIN,TOTAL 0.6 mg/dL (0.2-1); TOT PROT 5.7 g/dl (6.4-8.2)
[2024-06-22 11:02] LABS: ALK PHOS 106 U/L (45-117)
[2024-06-22] MEDS: POTASSIUM CHLORIDE ORAL LIQUID 20 MEQ/15 ML PO ONE (12:37)
[2024-06-22] MEDS: LOPERAMIDE HCL 2 MG CAPSULE PO PRN (14:15)
[2024-06-22] MEDS: NICOTINE POLACRILEX 2 MG GUM BUC PRN (15:27)
[2024-06-22] MEDS: hydrOXYzine PAMOATE 25 MG CAPSULE (FP) PO PRN (18:09)
[2024-06-22] MEDS: ACETAMINOPHEN 325 MG TABLET (FP) PO PRN (18:09)
[2024-06-22] MEDS: METHOCARBAMOL 500 MG TABLET PO PRN (22:43)
[2024-06-23] MEDS: IBUPROFEN 600 MG TABLET (FP) PO PRN (10:08)
[2024-06-23] MEDS: amLODIPine BESYLATE 5 MG TABLET (FP) PO SCH (11:12)
[2024-06-23 17:39] VITALS: RESP 16
[2024-06-23] MEDS: levETIRAcetam 500 MG TABLET (FP) PO SCH (22:41)
[2024-06-24 08:42] VITALS: BP 129/85; PULSE 90; TEMP 97.9
== END 2024-06-24 11:30 | disposition home or self-care (01) | DRG 775 ==
LOC: YASAS 18:34 → Y6N 22:58
PROVIDERS: ADMIT Allergy & Immunology; ATTEND Allergy & Immunology
PROC: HZ2ZZZZ Detoxification Services for Substance Abuse Treatment (ICD-10-PCS; principal; 2024-06-21)
DX: F10.20 Alcohol dependence, uncomplicated (principal); E87.6 Hypokalemia; I10 Essential (primary) hypertension; D64.9 Anemia, unspecified; R56.1 Post traumatic seizures; R26.89 Other abnormalities of gait and mobility
CPT/HCPCS: 36415; 80053; 80305; 80307; 82140; 84132; 85027; 86780